=== PATIENT | female | born 1995 | race African-American/Black ===

== ENCOUNTER 2021-11-14 09:30 | Emergency (ER) | payer OTHER, SELFPAY ==
[2021-11-14 09:35] VITALS: BP 142/93; PULSE 93; RESP 16; TEMP 37.9; O2SAT 99
--- NOTE | 2021-11-14 09:40 | W.ED.GENAD ---
Discharge Plan Disposition Patient Disposition: HOME Condition: Stable Discharge Details Clinical Impression: Otitis externa Primary Care Provider: Unknown,Unknown ED Provider: Imtiaz Villasenor Home Meds and New Rx's Prescriptions: No Action No Known Home Meds Discharge Instructions Instructions: Otitis Externa (ED) Additional Instructions: You may continue to take [id number] ibuprofen 600 mg every 6 hours as needed for pain and discomfort. You have been provided the antibiotic eardrops which you need to apply 3 drops in your right ear twice daily for 7 days. If you have any new or significant worsening of symptoms please return immediately to the emergency department for reassessment otherwise if you are not improving in the next week please be seen by your primary care provider, urgent care, or the closest emergency department. Referrals: Primary Care Provider [Outside] (If not improving) Medical Decision Making Patient presenting to the emergency department for chief complaint of right ear pain. Patient denies any injury or trauma, flights, or other associated symptoms. Patient has no relevant past medical history. Physical exam shows significant tenderness and edema with erythema to the right with no some irritation to the right TM. Exam is otherwise unremarkable. No signs of malignant otitis, zoster, and exam is consistent with otitis externa. Will place patient on antibiotic drops with steroid component to help with swelling and discomfort. After discussion of diagnosis and plan of care patient has no further needs, questions, or concerns and states clear understanding to return to the emergency department for any worsening symptoms. This documentation was generated using [employer] dictation system, please disregard any oddities of phrase or misspellings. HPI General Mode of arrival: ambulatory. Date/Time Provider Initiated Documentation: 11/14/21 09:40. Limitations to Documentation: no limitations. Information obtained by: patient. History of Present Illness 25 year old F presents to the emergency department with the chief complaint of Right ear pain, described as mild and moderate, with intensity rated at 6. Quality is described as aching, and is localized to the right (ear). Patient reports no radiation. Patient started experiencing this day(s) (2) and it has been constant. No relieving factors improve symptom(s), No exacerbating factors reported . Patient notes no other symptoms.. Patient did receive the following treatments prior to arrival, none Related Data Home Medications Medication Instructions Recorded Confirmed Unknown [No Known Home Meds] 11/14/21 11/14/21 Allergies Allergy/AdvReac Type Severity Reaction Status Date / Time No Known Allergies Allergy Unverified 11/14/21 09:41 General Stated Complaint: EarProblem NOREEN: 4 Review of Systems Narrative: 8 systems reviewed and unremarkable except what is marked below. Constitutional Constitutional: Denies headache(s) ENT Ears, Nose, Mouth, and Throat: Reports as per HPI, Denies dizziness, Denies ear discharge, Reports otalgia, Denies facial pain, Denies headache(s), Denies nasal congestion and Denies neck pain Musculoskeletal Musculoskeletal: Denies neck pain Neurologic Neurologic: Denies dizziness and Denies headache(s) PFSH All Active Problems (Updated 11/14/21 @ 09:47 by Imtiaz Villasenor NP) Otitis externa (Acute) Social History Smoking risk assessment performed?: No Female Reproductive History Menstrual Date of last menstrual period: 10/31/21 Exam Const General: cooperative, no acute distress and not ill appearing Orientation: alert, awake and oriented x3 HENMT Head: atraumatic Ears: hearing grossly normal bilaterally, external ears normal, TM normal on the left, mastoids normal, no periauricular adenopathy and EAC abnormal erythema on the right, edema on the right and EAC tenderness on the right; no cerumen impaction, no excessive cerumen, no foreign body and no otic discharge Resp Effort & Inspection: normal respiratory effort, able to speak in complete sentences and no respiratory distress Cardio Rate: regular rate Rhythm: regular rhythm Skin General skin exam: no rashes or lesions noted Neuro General: patient alert, patient awake, patient oriented x3, moves all extremities and no focal motor deficits Course Vital Signs Vital signs: Vital Signs Temperature 37.9 C H 11/14/21 09:35 Pulse 93 H 11/14/21 09:35 Respiratory Rate 16 11/14/21 09:35 Blood Pressure 142/93 H 11/14/21 09:35 Pulse Oximetry 99 11/14/21 09:35 Temperature 37.9 C H 11/14/21 09:35 Pulse 93 H 11/14/21 09:35 Respiratory Rate 16 11/14/21 09:35 Blood Pressure 142/93 H 11/14/21 09:35 Blood Pressure Position Sitting 11/14/21 09:35 Pulse Oximetry 99 11/14/21 09:35 Oxygen Delivery Method Room Air 11/14/21 09:35 Oxygen Flow Rate 0 11/14/21 09:35 Pain Level 6 11/14/21 09:35
[2021-11-14] MEDS: Ibuprofen 600 MG TAB PO (09:48)
--- OUTSIDE RECORDS SUMMARY | 2021-11-14 09:59 | XMS_ITS | Encounter Summary ---
:1995 Author Organization [facility] Address [address] Attn: Epic Prelude ADT [place] [address] Care Team Providers Name Role Phone Unavailable Primary Care Provider Unavailable Encounter Details Date Type Department Care Team Description 10/23/2020 Travel Social History Tobacco Use Types Packs/Day Years Used Date Never Smoker 1 Smokeless Tobacco: Never Used Alcohol Use Standard Drinks/Week Comments Not Currently 0 (1 standard drink = 0.6 oz pure alcoho l) Sex Assigned at Date Recorded Not on file COVID-19 Exposure Response Date Recorded In the last month, have you been in contact with No / Unsure 10/23/2020 1:46 PM CDT someone who was confirmed or suspected to have Coronavirus / COVID-19? documented as of this encounter Plan of Treatment Not on filedocumented as of this encounter Visit Diagnoses Not on filedocumented in this encounter
--- OUTSIDE RECORDS SUMMARY | 2021-11-14 09:59 | XMS_ITS | Encounter Summary ---
:1995 Author Organization [facility] Address [address] [facility] [address] [place] [address] Care Team Providers Name Role Phone Unavailable Primary Care Provider Unavailable Reason for Visit Reason Comments Covid Testing Family member recently teste d positive; has runny nose, sore throat, GOODWIN and myalgias. Encounter Details Date Type Department Care Team Description 12/12/2020 Video Visit [facility] Rashida Mcfadden Enco unter for screening for COVID-19 (Primary Dx); STUART WIN PA-C Sore throat; [address] Myalgia after COVID-19 vaccination; [place] Nonintractable headache, unspecified chronicity pattern, unspecified headache type [id number] Social History Tobacco Use Types Packs/Day Years Used Date Never Smoker 1 Smokeless Tobacco: Never Used Alcohol Use Standard Drinks/Week Comments Not Currently 0 (1 standard drink = 0.6 oz pure alcoho l) Sex Assigned at Date Recorded Not on file COVID-19 Exposure Response Date Recorded In the last month, have you been in contact Unable to assess 12/12/2020 1:55 PM CDT with someone who was confirmed or suspected to have Coronavirus / COVID-19? documented as of this encounter Progress Notes Rashida Mcfadden PA-C - 12/12/2020 1:50 PM CDT No chief complaint on file. No current outpatient medications on file. No current facility-administered medications for this visit. No Known Allergies No past medical history on file. No past surgical history on file. No family history on file. Social History Tobacco Use ??? Smoking status: Never Smoker ??? Smokeless tobacco: Never Used Substance Use Topics ??? Alcohol use: Not Currently HPI: Beatriz Walker is a 25 y.o. female who is requesting SARS-CoV2 PCR Testing. Patient states she has sore throat, headache, runny nose and myalgias; family member recently tested positive. PMH/Problem, Social, Allergy and Medication lists are reviewed. REVIEW OF SYSTEMS: Fever 100.4 or greater: No New cough: No New onset SOB: No CONSTITUTIONAL: positive fatigue and negative fever HENT: positive rhinorrhea and positive sore throat RESPIRATORY: negative for chest tightness, cough, and shortness of breath GI: negative diarrhea MUSCULOSKELETAL: positive myalgias NEUROLOGICAL: positive headaches OBJECTIVE: There were no vitals taken for this visit. General:?well developed, well nourished, no acute distress. Eyes: No conjunctival injection or discharge. Nose/sinus: noted clear rhinorrhea Throat: no noted trismus or drooling Lung: No increased work of breathing noted, speaking in full sentences. Neck: No stridor. Normal ROM. Psychiatric: Affect and mood normal. Interactive and conversant. Alert and oriented. Skin: Warm and dry without visible rash. Orders Placed This Encounter ??? 2019 NOVEL CORONAVIRUS (COVID-19) PCR DETECTION ASSESSMENT: ICD-10-CM ICD-9-CM 1. Encounter for screening for COVID-19 Z11.52 V73.89 2019 NOVEL CORONAVIRUS (COVID-19) PCR DETECTION 2. Sore throat J02.9 462 3. Myalgia after COVID-19 vaccination M79.10 729.1 [id number].B95A E949.6 4. Nonintractable headache, unspecified chronicity pattern, unspecified headache type R51.9 784.0 This encounter was completed via two-way synchronous audio and video communication. Patient expressed understanding that using technology outside of [facility] has higher potential to introduce privacy risks: Yes Patient's identity confirmed yes Patient gave verbal consent to have these services billed to their insurance and expressed understanding that co-insurance and deductible may apply: yes Pt informed test results may take 3-5 days to be returned and they will be called to discuss resultsas soon as they are available. Recommend quarantine/self isolation measures and masking until results are returned. documented in this encounter Miscellaneous Notes Patient Instructions - Rashida Mcfadden PA-C - 12/12/2020 1:50 PM CDT Please remain quarantined until your results are available, which may take 3-5 days. You must remainin your home away from others as much as possible while waiting for your results. You may treat your symptoms with over the counter medications such as ibuprofen and tylenol for fever and muscle aches, antihistamines/decongestants such as benadryl, zyrtec, nyquil, claritin, etc for cough/cold symptoms. If you develop shortness of breath, chest pain or difficulty breathing, please go to the Emergency Room. [facility] you very [facility]...it was my pleasure to provide care for you today!! Feel better soon!! documented in this encounter Plan of Treatment Not on filedocumented as of this encounter Results (ABNORMAL) 2019 NOVEL CORONAVIRUS (COVID-19) PCR DETECTION (12/12/2020 5:29 PM CDT) [facility] Method Time Signature COVID-19 PCR DETECTED (A) NOT DETECTED [facility] Comment: ?? A Detected result indicates that the pat ients' specimen was positive for SARS-CoV-2 RNA. ?? Test Method: Nucleic Acid Amplification Test including reverse show operations supervisor polymerase chain r eaction (RT-PCR and show operations supervisor mediated amplification (TMA). The test method meets the [place] Centers for Disease Control and prevention (CDC) pre departure and arriv al requirement for viral test for COVID-19 dated 2020. Testing requirements for traveling may c hange with time. The patient is responsible for determini ng the test requirements for each nation while they are traveling. This test has been authorized by the FDA under an Emergency Use Authorization (EUA) for us e by authorized laboratories. Please review the Fact Sheets and FDA authorized labeling available for health care provi ders and patients using the following websites: https://www.Basic-Fit.O-CODES/home/Co vid-19/HCP/QuestIVD/fact- sheet.html https://www.Basic-[employer].O-CODES/home/Co vid-19/Patients/ [facility]/fact-sheet.html ?? Due to the current public health emergen cy, [facility] is accepting samples from ap propriate clinical sources collected using wide id riety of swabs and transport media for COVID-19. Not detected test results derived from specimens rece ived in non- commercially manufactured viral collecti on kits or those not yet authorized by FDA for COVID-19 t esting should be cautiously evaluated and take extra prec autions such as such as additional clinical monitoring, including collection of an additional specimen. ? Additional information about COVID-19 ca n be found at the [facility] website: www.(In)Touch [email or web address]. [facility] [address] [place], [place] ??[address] Humberto Cruz D.O., MPH Specimen (Source) Anatomical Collection Method Collection Time Re ceived Time Location / / Volume Laterality Upper Respiratory ENTIRE NASOPHARYNX 12/12/2020 5:29 0 12/13/2020 5:14 / Unknown PM CDT AM CDT Rashida Mcfadden PA-C MICROBIOLOGY - GENERAL ORDER ELLA Performing Organization Address City/State/ZIP Code Phon e Number [facility] [phone] [place] [address] documented in this encounter Visit Diagnoses Diagnosis Encounter for screening for COVID-19 - P rimary Sore throat Acute pharyngitis Myalgia after COVID-19 vaccination Nonintractable headache, unspecified chr onicity pattern, unspecified headache type documented in this encounter Additional Health Concerns Infection Onset Date Last Indicated Resolved Time R/O COVID-19 12/12/2020 12/12/2020 12/12/2020 3:53 PM CDT documented as of this encounter
--- OUTSIDE RECORDS SUMMARY | 2021-11-14 09:59 | XMS_ITS | Clinical Summary ---
:1995 Author Organization [facility] Address [address] [place] [address] Care Team Providers Name Role Phone Unavailable Primary Care Provider Unavailable Allergies No known active allergies Medications No known medications Active Problems Problem Noted Date Acne vulgaris 04/27/2015 Social History Tobacco Use Types Packs/Day Years Used Date Never Smoker 1 Smokeless Tobacco: Never Used Alcohol Use Standard Drinks/Week Comments Not Currently 0 (1 standard drink = 0.6 oz pure alcoho l) Sex Assigned at Date Recorded Not on file Last Filed Vital Signs Vital Sign Reading Time Taken Comments Blood Pressure 141/92 10/23/2020 3:02 PM CDT Pulse 98 12/12/2020 5:31 PM CDT Temperature 37.2 ??C (99 ??F) 12/12/2020 5:31 PM CDT Respiratory Rate 18 10/23/2020 1:47 PM CDT Oxygen Saturation 99% 12/12/2020 5:31 PM CDT Inhaled Oxygen Concentration - - Weight 65.8 kg (145 lb) 10/23/2020 1:47 PM CDT Height 165.1 cm (5' 5) 10/23/2020 1:47 PM CDT Body Mass Index 24.13 10/23/2020 1:47 PM CDT Plan of Treatment Health Maintenance Due Date Last Done Comments HPV VACCINES (1 - 2-dose 11/18/2007 series) CERVICAL CANCER SCREENING 2017 INFLUENZA VACCINE (#1) 2021 03/24/2017, 02/05/2016, 05/05/2015 DTAP/TDAP/TD VACCINES (2 - Td 05/05/2025 05/05/2015 or Tdap) PNEUMOCOCCAL VACCINE 0-64 Aged Out No lauren demetrius eligible based YEARS on patient's age to complete this to [facility] Insurance Payer Benefit Plan Subscriber ID Effective Phone Address Typ e / Group Dates SHALONDA LIZ [id number] 2008-Pres [id number] [employer] ent [id number] [place] N[place] [id number] SHALONDA CROWDER [id number] 2020-Pres [phone] HMO HEALTHCARE FUND OA PLUS ent [id number] [place] [id number] Advance Directives For more information, please contact: [phone] Documents on File Type Date Recorded 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
--- OUTSIDE RECORDS SUMMARY | 2021-11-14 09:59 | XMS_ITS | Encounter Summary ---
:1995 Author Organization [facility] Address [address] Attn: Epic Prelude ADT [place] [address] Care Team Providers Name Role Phone Unavailable Primary Care Provider Unavailable Encounter Details Date Type Department Care Team Description 12/12/2020 Travel Social History Tobacco Use Types Packs/Day [...] Diagnoses Not on filedocumented in this encounter Additional Health Concerns Infection Onset Date Last Indicated Resolved Time R/O COVID-19 12/12/2020 12/12/2020 12/12/2020 3:53 PM CDT R/O COVID-19 12/12/2020 12/12/2020 12/13/2020 1:07 PM CDT documented as of this encounter
--- OUTSIDE RECORDS SUMMARY | 2021-11-14 09:59 | XMS_ITS | Encounter Summary ---
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 Threat - A verbal outburst which is more than just a raised voice and where there is a definite intent to intimidate or threaten another person. For example, verbal attacks, abuse, name-calling,verbally neutral comments uttered in a snarling aggressive manner.: No (10/23/201432) Physical Attacks - Where there is a definite intent to physically threaten another person. For example, the taking of an aggressive stance, the grabbing of another person???s clothing, the raising of an arm or leg, making a fist or modeling a head-butt directed at another. : No (10/23/201432) Attacks on Objects - An attack directed at an object and not an individual. For example, the indiscriminant throwing of an object, banging or smashing windows, kicking, banging or head butting an object or the smashing of furniture. : No (10/23/201432) Broset Violence Score: Total: 0 (10/23/201432) Risks Factors Major Stressors: Other (comment) (pt states she does not know really) (10/23/20 142) Currently receiving treatment: No (Pt reports pt's father made her an appointment with a mental health provider at [facility] on 10/25.) (10/23/20 142) Substances: Cannabis (10/23/201438) Perceived burden on family/others : Yes (10/23/20 1441) Access to Firearms/Weapons: no (07/04/21 1439); If yes, plan to limit access: pt denies Family history of suicide attempt: No (10/23/201434) Family history of a completed suicide: No (10/23/201434) Patient Liabilities: Lack of Insight;Substance (10/23/20 144) Protective Factors Identifies reasons for living: Yes (10/23/201434) Responsibility to family/others : Yes (10/23/20 144) Supportive social network/family : Yes (10/23/201440) Are there things - anyone or anything (e.g., family, anabaptist, pain of ) - that stopped you from wanting to or acting on thoughts of committing suicide? (Past Month): Does not apply (10/23/201434) Patient Strengths: [place] in ADL's;Able to Express Needs;Potential for Insight;Cognitively Intact;Good Verbal Skills (10/23/201441) Supportive social network/family : Yes (10/23/201440) Support System: SUPPORT SYSTEMS: / parents Homicidal Ideation Violence-Risk Towards Others In the past month have you had thoughts of harming another person?: No (10/23/201432) Abuse & Trauma Abuse/Trauma Abuse/Trauma: No (10/23/201438) PSYCHOLOGICAL SYMPTOMS: Sleeping/Eating Patterns Sleeping Patterns: No problems (10/23/201427) Hours of Sleep: denies issues (10/23/201427) Eating Patterns: Decreased appetite (10/23/201427) Onset of Current Symptoms: more so recently (10/23/201427) Depressive Symptoms Depressive Symptoms Noted: Yes (10/23/201427) Types: Low mood;Loss of interest;Irritability;Crying;Decreased energy;Poor self-care;Isolation;Impaired concentration;Feelings of helplessness (10/23/201427) Onset of Current Symptoms: getting really severe lately (10/23/201427) Manic Symptoms Manic Symptoms Noted: Yes (10/23/201427) Types: Distractibility (10/23/201427) Onset of Current Symptoms: spending a lot of money, forgetting to pay bills (10/23/201427) Psychotic Symptoms Psychotic Symptoms Noted: No (10/23/201427) Anxiety Symptoms Anxiety Symptoms Noted: Yes (10/23/201427) Types: Generalized;Social anxiety;Excessive worry (10/23/201427) Onset of Current Symptoms: all the times (10/23/201427) SUBSTANCE ABUSE SCREENING: Substances Substances: Cannabis (10/23/201438) Cannabis Route: smoked (10/23/201438) Cannabis Frequency: once or twice a day (10/23/201438) Cannabis Amount: not much at all (10/23/201438) Last use of cannabis: Saturday (10/23/201438) Cannabis Treatment: none (10/23/201438) Any family history of substance abuse problems?: pt denies (10/23/201438) FAMILY HISTORY OF MENTAL ILLNESS: Family history of mental illness/substance use: No (10/23/201434) Family history of suicide attempt: No (10/23/201434) Family history of a completed suicide: No (10/23/201434) PSYCHOSOCIAL ASSESSMENT: School School Status: N/A (10/23/201433) Bullying Are you being bullied or bullying others: No (10/23/201433) Bullying Are you being bullied or bullying others: No (10/23/201433) Living Situation/Arrangements Current Living Situation: Apartment (10/23/201433) Living Arrangements: Lives with friend/caregiver (roomate) (10/23/201433) 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 Living Situation/Arrangements Current Living Situation: Apartment (10/23/201433) Living Arrangements: Lives with friend/caregiver (roomate) (10/23/201433) If discharged - Outpatient Psychiatry Referral or Outpatient Counseling Referral Provisional Diagnoses: ?? Primary Diagnosis: [place] [facility] DSM-V With SmartLists: Bipolar Disorder, Unspecified 296.80, F31.9.ICD-10-CM ?? Additional Diagnosis(es): [place] [facility] DSM-V With SmartLists: Generalized Anxiety Disorder 300.02; F41.1.ICD-10-CM ?? Acute Medical: Defer ?? Psychosocial: Psych stressors: pt unsure Suicide Hotline Resources Provided: yes Provider rationale for discharge if patient scored high risk on CSSR-s: Pt is Low Risk. She denies SI/HI. Her mother does not have concerns for suicide. ~END~ External Community Referrals ED Enhancement 12/11 Referral Line: [phone] [facility] Opioid Project: [id number] signed by Delmy Blanco LCSW at 10/23/2020 3:25 PM CDTdocumented in this encounter ED Notes Heather Reed RN - 10/23/2020 3:48 PM CDT Patient was discharged with all of her personal belongings eather Smith RN - 10/23/2020 2:42 PM CDT Counselor at bedside Sluaiman Thakkar DO - 10/23/2020 1:45 PM CDT HISTORY OF PRESENT ILLNESS Beatriz Walker, a 24 y.o. female presents to the ED with a Chief Complaint of Anxiety and Depression Subjective Provider at bedside: 14:13. Beatriz Walker is a 24 y.o. female, with no relevant past medical history, who presents to the emergency department with anxious and depressed mood which began a few weeks ago. The patient states thatshe has been experiencing worsening highs and lows over the past few weeks. She mentions that her family has noticed her mental issues as well. The patient denies taking any psychiatric medications. She also denies any SI, HI, or hallucinations. Patient mentions that she smokes marijuana daily. History provided by: The patient Arrived by: Private vehicle Arrived from: Home Anxiety Presenting symptoms: depression Presenting symptoms: no suicidal thoughts Onset quality: Gradual Duration: 3 weeks Progression: Worsening Chronicity: New Treatment compliance: Untreated Associated symptoms: anxiety Associated symptoms: no abdominal pain, no chest pain and no headaches Depression Presenting symptoms: depression Presenting symptoms: no suicidal thoughts Associated symptoms: anxiety Associated symptoms: no abdominal pain, no chest pain and no headaches REVIEW OF SYSTEMS Review of Systems Constitutional: Negative for chills, diaphoresis and fever. HENT: Negative for congestion, rhinorrhea and voice change. Eyes: Negative for discharge and visual disturbance. Respiratory: Negative for cough, chest tightness, shortness of breath and stridor. Cardiovascular: Negative for chest pain and leg swelling. Gastrointestinal: Negative for abdominal pain, diarrhea, nausea and vomiting. Endocrine: Negative for polyuria. Genitourinary: Negative for difficulty urinating and dysuria. Musculoskeletal: Negative for arthralgias and myalgias. Skin: Negative for rash. Neurological: Negative for dizziness, speech difficulty and headaches. Psychiatric/Behavioral: Positive for depression and dysphoric mood. Negative for suicidal ideas. Thepatient is nervous/anxious. All other systems reviewed and are negative. PAST MEDICAL HISTORY REVIEWED MEDICAL: Patient has no past medical history of Patient denies relevant medical history. SURGICAL: Patient has no past surgical history on file. FAMILY: Patient's family history is not on file. SOCIAL: reports that she has never smoked. She has never used smokeless tobacco. She reports previous alcohol use. She reports current drug use. Drug: Marijuana. No history on file. Social History Other Topics Concern ??? Not on file ALLERGIES Patient has no known allergies. HOME MEDICATIONS There are no discharge medications for this patient. Objective PHYSICAL EXAM INITIAL VS BP: (!) 151/107 (10/23/20 134), Heart Rate: 89 bpm (10/23/20 134), Resp: 18 (10/23/201346), Pulse: 89 (10/23/201346), Temp: 99.4 ??F (37.4 ??C) (10/23/201346), Temp src: Oral (10/23/201346), SpO2: 99 % (10/23/201346), Height: 5' 5 (165.1 cm) (10/23/20 1347), Weight: 65.8 kg (145 lb) (10/23/20 1347), BMI (Calculated): 24.13 (10/23/20 1347) Patient's last menstrual period was 10/05/2020. Physical Exam Vitals and nursing note reviewed. Exam conducted with a [employer] rep present. Constitutional: General: She is not in acute distress. Appearance: Normal appearance. HENT: Head: Normocephalic and atraumatic. Right Ear: External ear normal. Left Ear: External ear normal. Nose: Nose normal. Mouth/Throat: Mouth: Mucous membranes are moist. Pharynx: Oropharynx is clear. Eyes: Extraocular Movements: Extraocular movements intact. Conjunctiva/sclera: Conjunctivae normal. Pupils: Pupils are equal, round, and reactive to light. Neck: Trachea: Trachea normal. No tracheal deviation. Cardiovascular: Rate and Rhythm: Normal rate and regular rhythm. Pulses: Normal pulses. Radial pulses are 2+ on the right side and 2+ on the left side. Dorsalis pedis pulses are 2+ on the right side and 2+ on the left side. Pulmonary: Effort: Pulmonary effort is normal. Breath sounds: Normal breath sounds. No decreased breath sounds, wheezing, rhonchi or rales. Chest: Chest wall: No tenderness. Abdominal: General: Bowel sounds are normal. Palpations: Abdomen is soft. Tenderness: There is no abdominal tenderness. Musculoskeletal: General: No tenderness. Cervical back: Normal range of motion and neck supple. No rigidity. Right lower leg: No edema. Left lower leg: No edema. Skin: General: Skin is warm and dry. Findings: No erythema. Neurological: General: No focal deficit present. Mental Status: She is alert and oriented to person, place, and time. Cranial Nerves: Cranial nerves are intact. Sensory: Sensation is intact. Motor: Motor function is intact. Coordination: Coordination is intact. Psychiatric: Mood and Affect: Mood is anxious and depressed. Speech: Speech is rapid and pressured. Behavior: Behavior is hyperactive. Behavior is cooperative. Thought Content: Thought content normal. Thought content does not include homicidal or suicidal ideation. DIAGNOSTICS LAB: CBC WITH DIFFERENTIAL - Abnormal Result Value WBC 5.7 RBC 4.77 HEMOGLOBIN 14.1 HEMATOCRIT 42.2 MCV 88.4 MCH 29.5 MCHC 33.4 RDW 13.3 PLATELETS 190 MPV 8.5 (*) NEUTROPHILS 63 LYMPHOCYTES 30 MONOCYTES 7 EOSINOPHILS 1 BASOPHILS 0 NEUTROPHIL ABSOLUTE 3.60 LYMPHOCYTE ABSOLUTE 1.70 MONOCYTE ABSOLUTE 0.40 EOSINOPHIL ABSOLUTE 0.00 BASOPHILS ABSOLUTE 0.00 COMPREHENSIVE METABOLIC PANEL - Abnormal SODIUM 138 POTASSIUM 3.8 CHLORIDE 104 CO2 21 (*) CALCIUM 9.4 BUN 11 CREATININE 0.69 GLUCOSE 81 TOTAL PROTEIN 7.6 ALBUMIN 4.4 BILIRUBIN TOTAL 0.7 ALKALINE PHOSPHATASE 59 AST 14 ALT 11 GFR >60 GFR, >60 ANION GAP 13 TSH - Normal TSH 0.57 ETHANOL LEVEL ETHANOL <10.00 ETHANOL % 0.01 RADIOLOGY: No orders to display Pulse Oximetry Interpretation: Saturation: 100% Oxygen Delivery: room air Interpretation: no hypoxia at this time EKG: PROCEDURES Procedures MEDICAL DECISION MAKING AND PLAN OF CARE ED Course as of Oct 23 2225 Sun Oct 23, 2020 1413 Patient seen by ED provider at bedside. History obtained and physical exam performed. Updated the patient on the expected course of treatment. They are agreeable. [TG] [id number] Spoke with psychiatric ignition specialist, who evaluated the patient in the ED. Dr. Platt, psychiatrist recommends discharge for outpatient follow up. Patient will be provided with appropriate resources. Patient has an upcoming appointment with her therapist in two days. [TG] ED Course User Index [TG] Boaz Mast, Any MORELOS I have reviewed previous: notes I have reviewed current: labs I have reviewed nursing notes related to past medical history, social history, and review of systemsand agree, unless otherwise noted. There are no discharge medications for this patient. LAST VS BP: (!) 141/92 (10/23/20 1502), Heart Rate: 89 bpm (10/23/20 1347), Resp: 18 (10/23/20 1347), Pulse:78 (10/23/20 1502), Temp: 99.4 ??F (37.4 ??C) (10/23/20 1347), Temp src: Oral (10/23/20 1347), SpO2:97 % (10/23/20 1502) CLINICAL IMPRESSION Final diagnoses: [F43.23] Situational mixed anxiety and depressive disorder (Primary) DISPOSITION, EDUCATION AND MEDICATION RECONCILIATION Medications reconciled. See after visit summary for patient education on discharged patients. ED Disposition ED Disposition Condition User Date/Time Comment Discharge Stable Sulaiman Ryder DO Sun Oct 23, 2020 3:34 PM ATTESTATION STATEMENTS This note is prepared by Boaz Mast acting as a scribe for Dr. Ryder. The scribe's documentation has been prepared under my direction and personally reviewed by me in itsentirety. I confirm that the note above accurately reflects all work, treatment, procedures, and medical decision making performed by me. documented in this encounter Plan of Treatment Not on filedocumented as of this encounter Procedures Procedure Name Priority Date/Time Associated Comments Diagnosis CBC WITH DIFFERENTIAL Stat 10/23/2020 2:51 PM Results for this CDT procedure are i n the results section. TSH Stat 10/23/2020 2:51 PM Results f or this CDT procedure are i n the results section. ETHANOL LEVEL Stat 10/23/2020 2:51 PM Results for this CDT procedure are i n the results section. COMPREHENSIVE Stat 10/23/2020 2:51 PM Results for this METABOLIC PANEL CDT procedure ar e in the results section. documented in this encounter Results TSH (10/23/2020 2:51 PM CDT) athologist Signature TSH 0.57 0.27 - 4.20 10/23/2020 [facility] uIU/mL 3:38 PM CDT SERVICES [facility] Specimen Anatomical Collection Method / Collection Time Recei manuel Time (Source) Location / Volume Laterality Blood Venipuncture / 10/23/2020 2:51 10/23/2020 2:57 Unknown PM CDT PM CDT Sulaiman Ryder DO CHEMISTRY ORDERABLES Performing Organization Address City/State/ZIP Code Phon e Number [facility] - CLIA# [id number] [place] [address] [facility] [id number] ETHANOL LEVEL (10/23/2020 2:51 PM CDT) athologist Signature ETHANOL <10.00 No Ref 10/23/2020 [facility] Range Estab 3:26 PM CDT LABORATORY mg/dL SERVICES - [facility] ETHANOL % 0.01 %w/v 10/23/2020 [facility] 3:26 PM CDT LABORATORY SERVICES - [facility] Specimen Anatomical Collection Method / Collection Time Recei manuel Time (Source) Location / Volume Laterality Blood Venipuncture / 10/23/2020 2:51 10/23/2020 2:57 Unknown PM CDT PM CDT Sulaiman Ryder DO CHEMISTRY ORDERABLES Performing Organization Address City/State/ZIP Code Phon e Number [facility] - CLIA# [id number] [place] [address] [facility] [id number] (ABNORMAL) COMPREHENSIVE METABOLIC PANEL (10/23/2020 2:51 PM CDT) Analysis Performed At Patho logist Time Signature SODIUM 138 136 - 145 10/23/2020 [facility] mmol/L 3:26 PM CDT LABORATORY SERVICES - [facility] POTASSIUM 3.8 3.4 - 5.1 10/23/2020 [facility] mmol/L 3:26 PM CDT LABORATORY SERVICES - [facility] CHLORIDE 104 98 - 107 10/23/2020 [facility] mmol/L 3:26 PM CDT LABORATORY SERVICES - [facility] CO2 21 (L) 22 - 29 10/23/2020 [facility] mmol/L 3:26 PM CDT LABORATORY SERVICES - [facility] CALCIUM 9.4 8.6 - 10.4 10/23/2020 [facility] mg/dL 3:26 PM CDT LABORATORY SERVICES - [facility] BUN 11 6 - 20 10/23/2020 [facility] mg/dL 3:26 PM CDT LABORATORY SERVICES - [facility] CREATININE 0.69 0.51 - 10/23/2020 [facility] 0.95 mg/dL 3:26 PM CDT LABORATORY SERVICES - [facility] GLUCOSE 81 74 - 99 10/23/2020 [facility] mg/dL 3:26 PM CDT LABORATORY SERVICES - [facility] TOTAL PROTEIN 7.6 6.3 - 8.7 10/23/2020 [facility] g/dL 3:26 PM CDT LABORATORY SERVICES - [facility] ALBUMIN 4.4 3.5 - 5.2 10/23/2020 [facility] g/dL 3:26 PM CDT LABORATORY SERVICES - [facility] BILIRUBIN TOTAL 0.7 0.3 - 1.2 10/23/2020 [facility] mg/dL 3:26 PM CDT LABORATORY SERVICES - [facility] ALKALINE 59 40 - 150 10/23/2020 [facility] PHOSPHATASE U/L 3:26 PM CDT LABORATORY SERVICES - [facility] AST 14 0 - 33 U/L 10/23/2020 [facility] 3:26 PM CDT LABORATORY SERVICES - [facility] ALT 11 0 - 33 U/L 10/23/2020 [facility] 3:26 PM CDT LABORATORY SERVICES - [facility] GFR >60 mL/min/1.7 10/23/2020 [facility] 3 sq meter 3:26 PM CDT LABORATORY SERVICES - [facility] Comment: eGFR has not been validated for use in t he elderly (> 70 years of age), women, patients with serious co-morbid conditions, or persons with extremes of body size or muscle mass and should als o be interpreted with caution in patient s with acute kidney failure, dialysis dependent patients, patients reporting exceptional dietary intake (e.g. vegetarian diet, high protein diets, creatine supple mentation), and patients with severe storm er disease. Based on National Kidney Disease Educati on Program If patient is , pleas e refer to the GFR result. GFR, >60 mL/min/1.73 sq meter 10/23/2020 3:26 PM [facility] ANGUILLAN CDT SERVICES - [facility] ANION GAP 13 8 - 16 mmol/L 10/23/2020 3:26 PM [facility] CDT SERVICES - [facility] Specimen Anatomical Collection Method / Collection Time Recei manuel Time (Source) Location / Volume Laterality Blood Venipuncture / 10/23/2020 2:51 10/23/2020 2:57 Unknown PM CDT PM CDT Sulaiman Ryder DO CHEMISTRY ORDERABLES Performing Organization Address City/State/ZIP Code Phon e Number [facility] - CLIA# [id number] [place] [address] [facility] [address] (ABNORMAL) CBC WITH DIFFERENTIAL (10/23/2020 2:51 PM CDT) [facility] gist Method Time Signature WBC 5.7 4.5 - 10.5 10/23/2020 [facility] K/uL 3:06 PM CDT LABORATORY SERVICES - [facility] RBC 4.77 3.90 - 10/23/2020 [facility] 4.90 M/uL 3:06 PM CDT LABORATORY SERVICES - [facility] HEMOGLOBIN 14.1 11.8 - 10/23/2020 [facility] 14.8 g/dL 3:06 PM CDT LABORATORY SERVICES - [facility] HEMATOCRIT 42.2 35.5 - 10/23/2020 [facility] 44.0 % 3:06 PM CDT LABORATORY SERVICES - [facility] MCV 88.4 82.0 - 10/23/2020 [facility] 99.0 fL 3:06 PM CDT LABORATORY SERVICES - [facility] MCH 29.5 27.8 - 10/23/2020 [facility] 34.5 pg 3:06 PM CDT LABORATORY SERVICES - [facility] MCHC 33.4 32.5 - 10/23/2020 [facility] 35.5 g/dL 3:06 PM CDT LABORATORY SERVICES - [facility] RDW 13.3 11.5 - 10/23/2020 [facility] 14.5 % 3:06 PM CDT LABORATORY SERVICES - [facility] PLATELETS 190 160 - 420 10/23/2020 [facility] K/uL 3:06 PM CDT LABORATORY SERVICES - [facility] MPV 8.5 (L) 8.7 - 12.7 10/23/2020 [facility] fL 3:06 PM CDT LABORATORY SERVICES - [facility] NEUTROPHILS 63 % 10/23/2020 [facility] 3:06 PM CDT LABORATORY SERVICES - [facility] LYMPHOCYTES 30 % 10/23/2020 [facility] 3:06 PM CDT LABORATORY SERVICES - [facility] MONOCYTES 7 % 10/23/2020 [facility] 3:06 PM CDT LABORATORY SERVICES - [facility] EOSINOPHILS 1 % 10/23/2020 [facility] 3:06 PM CDT LABORATORY SERVICES - [facility] BASOPHILS 0 % 10/23/2020 [facility] 3:06 PM CDT LABORATORY SERVICES - [facility] NEUTROPHIL 3.60 1.90 - 10/23/2020 [facility] ABSOLUTE 7.00 K/uL 3:06 PM CDT LABORATORY SERVICES - [facility] LYMPHOCYTE 1.70 0.70 - 10/23/2020 [facility] ABSOLUTE 4.50 K/uL 3:06 PM CDT LABORATORY SERVICES - [facility] MONOCYTE 0.40 0.10 - 10/23/2020 [facility] ABSOLUTE 1.30 K/uL 3:06 PM CDT LABORATORY SERVICES - [facility] EOSINOPHIL 0.00 0.00 - 10/23/2020 [facility] ABSOLUTE 0.70 K/uL 3:06 PM CDT LABORATORY SERVICES - [facility] BASOPHILS 0.00 0.00 - 10/23/2020 [facility] ABSOLUTE 0.20 K/uL 3:06 PM CDT LABORATORY SERVICES - [facility] Specimen Anatomical Collection Method / Collection Time Recei manuel Time (Source) Location / Volume Laterality Blood Venipuncture / 10/23/2020 2:51 10/23/2020 3:02 Unknown PM CDT PM CDT Sulaiman Ryder DO HEMATOLOGY ORDERABLES Performing Organization Address City/State/ZIP Code Phon e Number [facility] - CLIA# [id number] [place] [address] [facility] [id number] documented in this encounter Visit Diagnoses Diagnosis Situational mixed anxiety and depressive disorder - Primary Adjustment disorder with mixed anxiety a nd depressed mood documented in this encounter
== END 2021-11-14 09:55 | disposition home or self-care (01) ==
LOC: ER 09:57
PROVIDERS: Emergency Provider Nurse Practitioner Family
DX: H60.91 Unspecified otitis externa, right ear (principal)
CPT/HCPCS: 99283; 99284